=== PATIENT | female | born 1965 | race Hispanic/Latino ===

== ENCOUNTER 2023-05-17 12:38 | Emergency (ER) | payer OTHER ==
[~2023-05-17] VITALS: Ht 152.4 cm; Wt 104.3 kg
[2023-05-17 12:50] VITALS: O2SAT 96
== END 2023-05-17 14:05 | disposition home or self-care (01) ==
LOC: FSED 12:43
DX: S62.626A Displaced fracture of middle phalanx of right little finger, initial encounter for closed fracture (principal); W21.06XA Struck by volleyball, initial encounter; Y93.68 Activity, volleyball (beach) (court); Y92.89 Other specified places as the place of occurrence of the external cause; I10 Essential (primary) hypertension; E11.9 Type 2 diabetes mellitus without complications; I25.2 Old myocardial infarction; F17.210 Nicotine dependence, cigarettes, uncomplicated
CPT/HCPCS: 99283

== ENCOUNTER 2024-11-04 22:26 | Emergency (ER) | payer OTHER ==
[~2024-11-04] VITALS: Ht 154.9 cm; Wt 99.8 kg
[2024-11-04 22:32] VITALS: PULSE 79; RESP 18; TEMP 97.8
[2024-11-04] MEDS ORDERED: BACTRIM DS TAB1 EACH PO (22:54)
[2024-11-04 23:09] VITALS: BP 174/85; PULSE 79; RESP 18; TEMP 97.8; O2SAT 98
== END 2024-11-04 23:03 | disposition home or self-care (01) ==
LOC: FSED 22:43
DX: L03.113 Cellulitis of right upper limb (principal); M77.8 Other enthesopathies, not elsewhere classified; M25.531 Pain in right wrist; I10 Essential (primary) hypertension; E11.9 Type 2 diabetes mellitus without complications; I25.2 Old myocardial infarction
CPT/HCPCS: 99283